=== PATIENT | female | born 1990 | race Two or more races ===

== ENCOUNTER 2018-03-03 18:41 | Emergency (ER) | payer MEDICAID ==
[~2018-03-03] VITALS: Ht 154.9 cm; Wt 52.2 kg
[2018-03-03 19:13] VITALS: BP 100/70
[2018-03-03] MEDS ORDERED: predniSONE 20 MG TABLET ONE (20:44)
[2018-03-03] MEDS ORDERED: ONDANSETRON 4 MG TAB.RAPDIS ONE (20:44)
[2018-03-03] MEDS ORDERED: predniSONE 10 MG TABLET ONE (20:45)
[2018-03-03] MEDS ORDERED: IPRATROPIUM NEB FS 0.5 MG/2.5 ML AMPUL.NEB ONE (20:49)
[2018-03-03] MEDS ORDERED: ALBUTEROL FS 2.5 MG/3 ML VIAL.NEB ONE (20:49)
[2018-03-03] MEDS ORDERED: ONDANSETRON 4 MG TAB.RAPDIS SL ONE (21:00)
[2018-03-03] MEDS ORDERED: ALBUTEROL FS 2.5 MG/3 ML VIAL.NEB NEB ONE (21:00)
[2018-03-03] MEDS ORDERED: predniSONE 10 MG TABLET PO ONE (21:00)
[2018-03-03] MEDS ORDERED: IPRATROPIUM NEB FS 0.5 MG/2.5 ML AMPUL.NEB NEB ONE (21:00)
== END 2018-03-03 21:29 | disposition home or self-care (01) ==
LOC: ER 18:50
DX: J45.909 Unspecified asthma, uncomplicated (principal)
CPT/HCPCS: 94640; 99283; A4606; J7512 ×2; Q0162; Z7610